=== PATIENT | male | born 1970 | race Caucasian/White ===

== ENCOUNTER 2023-03-29 14:04 | Emergency (ER) | payer BC ==
[~2023-03-29] VITALS: Ht 175.3 cm; Wt 90.7 kg
[2023-03-29 14:04] VITALS: BP 192/120; PULSE 81; RESP 18; TEMP 98.5; O2SAT 95
[2023-03-29] MEDS ORDERED: APRESOLINE ONE (14:36)
[2023-03-29] MEDS: APRESOLINE IV STA (14:40)
[2023-03-29 14:51] VITALS: BP 181/100; PULSE 81; RESP 18; TEMP 98.5; O2SAT 95
[2023-03-29 14:55] LABS: ANION GAP 17.9; BUN/CREATININE RATIO 18.26 (10.0-20.0); CARBON DIOXIDE 24.8 mmol/L (20.0-32); CREATININE SERUM 1.15 mg/dL (0.59-1.40); EST GFR, NON-AA 67.3 (>/=60); POTASSIUM 3.7 mmol/L (3.6-5.2)
[2023-03-29 15:06] VITALS: BP 174/90; PULSE 75; RESP 18; TEMP 98.5; O2SAT 95
[2023-03-29] MEDS ORDERED: NORVASC ONE (15:22)
[2023-03-29 15:24] VITALS: BP 164/91; PULSE 74; RESP 18; TEMP 98.5; O2SAT 95
[2023-03-29] MEDS: NORVASC PO STA (15:24)
== END 2023-03-29 15:25 | disposition home or self-care (01) ==
LOC: ER 14:04
DX: I16.0 Hypertensive urgency (principal)
CPT/HCPCS: 99284; 96374; 36415; 80048; 93005; J0360